=== PATIENT | female | born 1980 | race Caucasian/White ===

== ENCOUNTER → 2018-02-10 | Outpatient (CLI) | payer BC | END | disposition home or self-care (01) | LOC: KCIC US 08:59 | DX: K80.20 Calculus of gallbladder without cholecystitis without obstruction (principal); R16.0 Hepatomegaly, not elsewhere classified; K76.0 Fatty (change of) liver, not elsewhere classified; R11.0 Nausea | CPT/HCPCS: 76705 ==

== ENCOUNTER → 2021-09-30 | Outpatient (CLI) | payer OTHER ==
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
== END ==
LOC: KCIC 10:27
PROVIDERS: ATTEND Physician Assistant Medical
DX: S20.219A Contusion of unspecified front wall of thorax, initial encounter (principal); S80.02XA Contusion of left knee, initial encounter; R07.89 Other chest pain; M17.0 Bilateral primary osteoarthritis of knee; V89.2XXA Person injured in unspecified motor-vehicle accident, traffic, initial encounter
CPT/HCPCS: 71046; 71110; 73562-50

== ENCOUNTER → 2021-10-21 | Outpatient (CLI) | payer OTHER ==
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
== END ==
LOC: KCIC MRI 13:07
PROVIDERS: ATTEND Physician Assistant Medical
DX: S83.232A Complex tear of medial meniscus, current injury, left knee, initial encounter (principal); S80.02XA Contusion of left knee, initial encounter; R60.9 Edema, unspecified; M79.672 Pain in left foot; M25.362 Other instability, left knee; M25.562 Pain in left knee; V89.2XXA Person injured in unspecified motor-vehicle accident, traffic, initial encounter; Y93.89 Activity, other specified; Y92.89 Other specified places as the place of occurrence of the external cause; Y99.8 Other external cause status
CPT/HCPCS: 73630; 73721